=== PATIENT | female | born 1985 | race Caucasian/White ===

== ENCOUNTER 2024-06-28 15:29 | Emergency (ER) | payer MEDICARE ==
[~2024-06-28] VITALS: Ht 160 cm; Wt 71.7 kg
[2024-06-28 15:33] VITALS: PULSE 93; RESP 16; TEMP 98.2; O2SAT 99
[2024-06-28] MEDS ORDERED: GABAPENTIN ER300 MG (16:04)
[2024-06-28] MEDS ORDERED: ACETAMINOPHEN-1 EAC4 (16:04)
[2024-06-28] MEDS ORDERED: TRAMADOL HCL 50 MG TAB PO ONE (16:15)
[2024-06-28] MEDS ORDERED: ACETAMINOPHEN 325 MG TAB PO ONE (16:15)
== END 2024-06-28 16:34 | disposition left against medical advice (07) ==
LOC: FSED 15:30
DX: N64.4 Mastodynia (principal)

== ENCOUNTER 2024-07-29 16:15 | Emergency (ER) | payer MEDICARE ==
[~2024-07-29] VITALS: Ht 160 cm; Wt 77.1 kg
[~2024-07-29 16:15] MED LIST: ACETAMINOPHEN-1 EAC4; GABAPENTIN ER300 MG
[2024-07-29 17:17] VITALS: PULSE 99; RESP 18; TEMP 98.4; O2SAT 99
== END 2024-07-29 17:40 | disposition left against medical advice (07) ==
LOC: ER 17:29
DX: R51.9 Headache, unspecified (principal)